=== PATIENT | female | born 1995 | race Caucasian/White ===

== ENCOUNTER 2017-12-14 16:50 | Emergency (ER) | payer MEDICAID, SELFPAY ==
[2017-12-14] MEDS ORDERED: Amoxicillin/Potassium Clav 875 MG TAB ONE (17:18)
[2017-12-14] MEDS ORDERED: Ondansetron ODT 4 MG TAB ONE (17:18)
[2017-12-14] MEDS ORDERED: Ibuprofen 800 MG TAB ONE (17:18)
== END 2017-12-14 17:28 | disposition home or self-care (01) ==
LOC: MADERS 16:50
DX: J02.9 Acute pharyngitis, unspecified (principal)
CPT/HCPCS: 99283; Q0162